=== PATIENT | female | born 1995 | race Caucasian/White ===

== ENCOUNTER 2023-10-21 10:34 | Outpatient (RCR) | payer BC, SELFPAY ==
[2023-10-22] MEDS: RHO(D) IMMUNE GLOBULIN 300 MCG/2 ML SYRINGE IM (10:27)
== END 2024-01-19 23:59 | disposition home or self-care (01) ==
LOC: ANHLAB 10:34
PROVIDERS: PCP Internal Medicine; Visit Provider Obstetrics & Gynecology
DX: Z29.13 Encounter for prophylactic Rho(D) immune globulin (principal); O36.0190 Maternal care for anti-D [Rh] antibodies, unspecified trimester, not applicable or unspecified; Z3A.00 Weeks of gestation of pregnancy not specified
CPT/HCPCS: 36415; 85461; 86850; 86900; 86901; 90384; 96372; J2790

== ENCOUNTER 2024-01-03 10:14 | Outpatient (CLI) | payer BC, SELFPAY ==
[2024-01-03 11:04] LABS: Hematocrit 37.3 % (37.0-47.0); Mean Corpuscular HGB Conc 32.2 g/dl (32-36); Mean Corpuscular Hemoglobin 28.4 pg (26-34); Mean Corpuscular Volume 88.2 fl (80-100); Mean Platelet Volume 11.8 fl (7.4-10.4); Platelet Count Result 150 k/mm3 (150-375); Red Blood Count 4.23 M/mm3 (4.2-5.4); Red Cell Distribution Width 13.5 % (11.5-14.5); White Blood Count 11.6 K/mm3 (4.5-10.0)
[2024-01-03 12:19] LABS: Rapid Plasma Reagin Non-Reactive (NonReactive)
== END 2024-01-03 10:15 | disposition home or self-care (01) ==
LOC: ANHLAB 10:17
PROVIDERS: PCP Internal Medicine; Visit Provider Obstetrics & Gynecology
DX: Z01.812 Encounter for preprocedural laboratory examination (principal); O32.1XX0 Maternal care for breech presentation, not applicable or unspecified
CPT/HCPCS: 36415; 85027; 86592; 86850; 86880; 86900; 86901

== ENCOUNTER 2024-01-05 09:56 | Inpatient (IN) | payer BC, SELFPAY ==
--- NOTE | 2024-01-01 08:31 | P.HP_ITS ---
H&P: HPI History of Present Illness Date/Time: 01/01/24 08:31 Chief Complaint: term with breech presentation Narrative: 28-year-old female 1 para 0 at39+ weeks gestation with breech presentation and low fluid. Her has been relatively uncomplicated. She is breech and she did not desire attempt at external version. Risks and benefits of this procedure were reviewed in full. [facility] Family History Family History Other Patient denies significant medical history Social History Social History Substance use: never Spiritual care concerns: No Meds Home Medications and Allergies Home Medications Medication Instructions Recorded Confirmed Type prenat.vits,acosta,kgj-[id number] 1 tablet 12/18/23 History Allergies Allergy/AdvReac Type Severity Reaction Status Date / Time amoxicillin Allergy Intermediate hives Verified 12/18/23 13:34 Exam Const: General: cooperative, healthy appearing, comfortable and average body habitus Nutritional Appearance: average body habitus Orientation/consciousness: oriented to person, oriented to place and oriented to time HENMT: Head: normal to inspection Resp: Effort & Inspection: normal respiratory effort Cardio: Rate: regular rate Rhythm: regular rhythm Heart sounds: S1 normal heart sound present and S2 normal heart sound present GI: Inspection: normal to inspection ( Gravid soft uterus) : External Female Exam: normal external appearance Speculum Exam - Vagin a: normal appearance of the vagina Speculum Exam - Cervix: normal appearance of the cervix Assessment and Plan Assessment and plan (1) Term : Code(s): Z34.90 - Encounter for supervision of normal , unspecified, unspecified trimester Status: Acute (2) Breech presentation: Code(s): O32.1XX0 - Maternal care for breech presentation, not applicable or unspecified Status: Acute Assessment and Plan: proceed with low-transverse section
[2024-01-05] VITALS (55 sets, daily range): BP systolic 103–129; BP diastolic 52–108; PULSE 47–113; RESP 10–20; TEMP 36.6–37.1; O2SAT 97–100; BMI 24.0
--- NOTE | 2024-01-05 05:33 | WPDHPUPDATE1 ---
History and Physical Update Update Date/Time: 01/05/24 05:33 History and Physical has been reviewed, including an updated exam of the patient. There are NO changes in the patient's condition. Risks, benefits, and alternatives have been discussed and questions answered. Patient agrees to proceed with procedure.
--- NOTE | 2024-01-05 09:56 | LDADM ---
This patient, Nazia Lu, was admitted to Labor/Delivery/Recovery 120 on 01/05/24 at 09:56. Plans for labor, pain management and were discussed with patient. Patient/family oriented to hospital policies and general routines including ID bracelet, bed and alarms, visiting hours, pain management, procedures, bathroom and other care routines, personal items, smoking policy, room service/diet and guest tray routines, security routines, and visiting hours. Patient/Family are encouraged to report perceived risks to care and to ask questions if they do not understand what they are told or what they should do. See OBIX for further documentation.
[2024-01-05] MEDS: ACETAMINOPHEN 500 MG TABLET 1000 MG PO (10:17)
[2024-01-05] MEDS: LACTATED RINGERS 1,000 ML 125 ML IV CONT ×2 (10:34→11:31)
--- NOTE | 2024-01-05 10:41 | P.PNAN_ITS ---
Anes - Initial Pre Proc Eval Procedure: Operation Date: 01/05/24 12:00 Proposed Procedures p Section - Mark Payne MD Date/Time: 01/05/24 10:41 Surgeon: Mark Payne MD Pre Op Diagnosis: c/s Patient Data Age: 28 Gender: F Height: 1.78 m Weight: 76 kg Allergies Allergy/AdvReac Type Severity Reaction Status Date / Time amoxicillin Allergy Intermediate hives Verified 12/18/23 13:34 Home Medications Medication Instructions Recorded Confirmed Type prenat.vits,acosta,czt-wkxx-baect 1 tablet PO DAILY 12/18/23 01/05/24 History Patient hx anesthesia problems: none Family hx anesthesia problems: none Results Review: All pre-operative results and documents have been reviewed as part of the pre- operative evaluation. [facility] Past Medical History Medical History (Updated 01/05/24 @ 10:41 by Mark Calhoun MD) Breech presentation Surgical History Surgical History (Updated 01/05/24 @ 10:41 by Mark Calhoun MD) H/O rhinoplasty Family History Family History Other Patient denies significant medical history Social History Social History Smoking status: Never smoker Substance use: never Do You Feel Safe in your Home?: Yes Lack of Transportation: No Lack of Food: Never True Current Housing: I Have Housing Concerned About Future Housing: No Difficulty Paying Gas/Electric Bills: No Difficulty Paying for Meds: No Currently Unemployed: No Education: Associate Degree Difficulty w/ Childcare or Family Care: No Spiritual care concerns: No Anes - Eval Final PreProcedure Day of Procedure 01/05/24 10:41 Patient weight: normal Heart: regular rate and rhythm Lungs: clear to auscultation Airway: Mallampati scale class 1 Neurological: alert and oriented Last oral intake: >/= 8 hours ASA classification: II Emergent: no Anesthetic plan: proceed Anesthesia type and monitoring: regional spinal Results Review: All pre-operative results and documents have been reviewed as part of the pre- operative evaluation. Informed Consent: The patient's anesthetic plan and its attendant risks and benefits were discussed with the patient/family/POA. Questions were solicited and answers provided to the satisfaction of the patient/family/POA.
[2024-01-05] MEDS: ONDANSETRON INJ 4 MG/2 ML VIAL IV PUSH (11:31)
[2024-01-05] MEDS: FAMOTIDINE 20 MG/2 ML VIAL IV PUSH (11:31)
[2024-01-05] MEDS: ceFAZolin 2 GM/D5W 50 ML 2 GM/50 ML BAG IVPB (11:38)
[2024-01-05 11:39] LABS: HIV 1/2 Ab P24 Ag Result Negative (Negative)
--- NOTE | 2024-01-05 12:34 | W.PM.OBCSD ---
OB - Delivery Note Procedure Delivery date: 01/05/24 Pre-op diagnosis: Breech Presentation Post-op Diagnosis: Same Induction method: None Delivery monitor: External FHT Prior to decision for section, ACOG/SM labor guidelines were considered and discussed with the patient and staff. Decision made to proceed with the section.: Yes Procedure Performed: Primary Surgeon: Mark Payne MD Anesthesia type: Spinal Description of Procedure/Findings: The patient was admitted for primary low-transverse section secondary to breech presentation ultrasound proved this preoperatively. After obtained informed consent she was taken back prepped and draped and placed in the supine position. Under excellent spinal anesthetic the abdomen was entered in Pfannenstiel fashion progressive layers of fascia. Fascia incised midline carried in upward and outward fashion bilaterally. Underlying muscles sharply dissected. Parietal peritoneum entered by Krystal clamps and superiorly and inferiorly the dome of the bladder. Bladder blade placed. Bladder flap formed. Bladder blade returned. A low transverse incision made in the breech delivered to the maternal left with the arm swept medially and the head delivered in the flexed position. Cord clamped x2 and cut passed off the table with an excellent cry. Apgars of 8 and 9 were given. Placenta delivered intact manually. Uterus delivered on the abdomen wrapped in moist towel. After assuring no membranes or debris remained in the uterus, the uterus was closed with continuous running locking 0 Vicryl from lateral edge to lateral edge. This followed by 2nd imbricating running locking 0 Vicryl from lateral edge to lateral edge. Hemostasis was assured. Ovaries and tubes appeared within normal limits in the uterus returned the abdomen. The hysterotomy incision inspected 1 last time noted be hemostatic. The laps removed and accounted for. The fascia closed with continuous running 0 Vicryl from lateral edge to lateral edge. Irrigation subcutaneous layer and the skin closed with 4 Monocryl glue. Blood loss was 500cc. All sponge, needle, instrument counts were correct. There were no immediate complications Specimen: No Estimated Blood Loss: 500 Drains: No Packing: No Pathology: None sent Complications: No immediate complications Condition: Stable Disposition: PACU [place] Baby Date of : 01/05/24 Time of : 12:15 Gestational Age by Date: 39 gender: Female Weight (pounds): 6 Weight (ounces): 8 presentation: luis breech position: Left Sacrum Posterior Placenta delivery description: Manual Removal Cord Vessel Description: 3 Vessels score one minute: 8 score five minutes: 9
--- NOTE | 2024-01-05 12:37 | P.DS_ITS ---
DS: Admitting Diagnosis Discharge Date 01/07/2024 Admitting Diagnosis term /breech presentation DS: Discharge Diagnosis Discharge Diagnosis (1) Term : Code(s): Z34.90 - Encounter for supervision of normal , unspecified, unspecified trimester Status: Acute DS: Summary Hospital Course Reason for hospitalization: patient was admitted for primary low-transverse section secondary to breech presentation Hospital Course: patient underwent primary low-transverse section for breech presentation. Her hospital course unremarkable. She remained afebrile. She was up, voiding without difficulty, eating regular diet, ambulating and generally without complaints. Time Spent with Patient Time attestation: Total time spent providing and/or coordinating discharge services: Exam Const: General: cooperative, healthy appearing and comfortable Nutritional Appearance: average body habitus Orientation/consciousness: oriented to pers on, oriented to place and oriented to time Resp: Effort & Inspection: normal respiratory effort Cardio: Rate: regular rate Rhythm: regular rhythm Heart sounds: S1 normal heart sound present and S2 normal heart sound present GI: Inspection: normal to inspection and incision ( Wound is clean dry and intact) DS: Data Data Completed and Pending Labs on day of discharge: Labs from last 24 hours 01/05/24 10:11 RPR Pending HIV 1&2 Ab/P24 Ag 4thGn Negative Discharge Plan Discharge Attending physician on discharge: Mark Batista Discharging Clinician: Mark Batista Patient Disposition: Home, Self-Care Activity: may shower, no straining, may drive after 2 weeks and pelvic rest Diet: heart healthy Patient Instructions: Antibiotic Form Stand Alone Forms: General Discharge Information Follow-up/Referrals: Mark Batista MD [Physician] - Discharge Medications: New hydrocodone-acetaminophen 5-325 mg tablet 1 tablet PO Q4H PRN (Reason: pain) Qty: 20 0RF No Action #2 Tablet 1 tablet PO DAILY Date of admission: 01/05/24 09:56 Primary Care Provider: Sadaf,Harinder Ramirez Admitting Provider: Mark Batista Attending physician on admission: Mark Batista Condition: Stable
[2024-01-05] MEDS: OXYTOCIN 30 UNITS/NS 500 ML 30 UNITS/500 ML BAG 125 UNITS IV CONT (14:04)
[2024-01-05 14:07] LABS: Rapid Plasma Reagin Non-Reactive (NonReactive)
--- NOTE | 2024-01-05 15:06 | PC.NURSE ---
Patient transferred to post room #281 via stretcher. Support person present. Oriented to unit, room, information board, rooming in, admission packet and security measures. Patient verbalizes understanding.
[2024-01-05] MEDS: KETOROLAC 15 MG/ML VIAL (*BKC) IV PUSH ×2 (16:32→22:37)
[2024-01-05] MEDS: ACETAMINOPHEN 325 MG TABLET 650 MG PO ×2 (16:33→22:37)
[2024-01-05] MEDS: SIMETHICONE 80 MG TAB.CHEW PO (16:34)
[2024-01-05] MEDS: DEXTROSE 5%/0.45% SOD CHL 1,000 ML 125 ML IV CONT (18:36)
[2024-01-05] MEDS: LIDOCAINE 5% PATCH 1 PATCH TRANSDERM (18:37)
[2024-01-06 04:15] VITALS: BP 110/62; PULSE 59; RESP 16; TEMP 36.3; O2SAT 100
[2024-01-06] MEDS: KETOROLAC 15 MG/ML VIAL (*BKC) IV PUSH ×2 (04:26→10:15)
[2024-01-06] MEDS: ACETAMINOPHEN 325 MG TABLET 650 MG PO ×4 (04:26→23:12)
[2024-01-06 04:44] LABS: Basophils Percent Auto 0.2 % (0.2-1.2); Eosinophils Absolute Auto 0.1 K/mm3 (0-0.3); Eosinophils Percent Auto 0.5 % (0-4.4); Hematocrit 32.8 % (37.0-47.0); Hemoglobin 11.1 g/dL (12.0-15.0); Immature Granulocyte Absolute 0.04 K/mm3 (0.00-0.031); Immature Granulocyte Percent A 0.4 % (0-0.5); Immature Platelet Fraction Pct 6.3 % (0.9-11.2); Lymphocytes Absolute Auto 1.26 K/mm3 (0.9-3.2); Lymphocytes Percent Auto 12.5 % (18.3-44.2); Mean Corpuscular HGB Conc 33.8 g/dl (32-36); Mean Corpuscular Hemoglobin 29.4 pg (26-34); Mean Platelet Volume 11.4 fl (7.4-10.4); Monocytes Absolute Auto 0.5 K/mm3 (0.1-0.6); Monocytes Percent Auto 5.4 % (2.6-8.5); Neutrophils Absolute Auto 8.1 K/mm3 (1.3-6.7); Platelet Count Result 139 k/mm3 (150-375); Red Blood Count 3.77 M/mm3 (4.2-5.4); Red Cell Distribution Width 13.4 % (11.5-14.5)
--- NOTE | 2024-01-06 06:30 | PM.OBPNVD ---
OB - PN: Subj Subjective Date/time seen: 01/06/24 06:30 Patient comments: no complaints and pain well controlled baby status: doing well and nursing well OB - PN: Obj Data Labs 01/06/24 04:25 Labs: Laboratory Results - last 24 hr 01/05/24 01/06/24 10:11 04:25 WBC 10.0 RBC 3.77 L Hgb 11.1 L Hct 32.8 L MCV 87.0 MCH 29.4 MCHC 33.8 RDW 13.4 Plt Count 139 L MPV 11.4 H Immature Gran % (Auto) 0.4 Neut % (Auto) 81.0 H Lymph % (Auto) 12.5 L [place] % (Auto) 5.4 Eos % (Auto) 0.5 Baso % (Auto) 0.2 Lymph # (Auto) 1.26 [place] # (Auto) 0.5 Eos # (Auto) 0.1 Baso # (Auto) 0.0 Abs Immat Gran (auto) 0.04 H Absolute Neuts (auto) 8.1 H Absolute Nucleated RBC 0.000 Nucleated RBC % 0.0 % Immature Plt Fraction 6.3 RPR Non-reactive HIV 1&2 Ab/P24 Ag 4thGn Negative Blood Type A Negative OB - PN A/P Plan day: 1 Plan: routine care Time Spent With Patient Time: Total time spent is greater than 50% in coordination of care (as documented) at patient's floor/unit and/or counseling patient: Time with patient: less than 15 minutes Exam Const: General: cooperative, healthy appearing and comfortable Nutritional Appearance: average body habitus Orientation/consciousness: oriented to person, oriented to place and oriented to time Resp: Effort & Inspection: normal respiratory effort Cardio: Rate: regular rate Rhythm: regular rhythm Heart sounds: S1 normal heart sound present and S2 normal heart sound present GI: Inspection: normal to inspection and incision (cdi)
[2024-01-06 07:20] VITALS: BP 106/72; PULSE 64; RESP 16; TEMP 36.6; O2SAT 100
[2024-01-06] MEDS: SIMETHICONE 80 MG TAB.CHEW PO ×2 (08:56→17:05)
[2024-01-06] MEDS: DOCUSATE SODIUM 100 MG CAPSULE PO ×2 (08:56→17:05)
[2024-01-06] MEDS: MULTIVIT/MIN/PREN/FOL AC/IRON TABLET 1 TAB PO (08:58)
[2024-01-06 12:23] VITALS: BP 110/67; PULSE 66; RESP 16; TEMP 37; O2SAT 98
[2024-01-06] MEDS: RHO(D) IMMUNE GLOBULIN 300 MCG/2 ML SYRINGE IM (12:35)
[2024-01-06] MEDS: IBUPROFEN 600 MG TABLET PO ×2 (17:04→23:12)
[2024-01-06] MEDS: LIDOCAINE 5% PATCH 1 PATCH TRANSDERM (18:51)
[2024-01-06 19:46] VITALS: BP 120/76; PULSE 58; RESP 18; TEMP 37.1; O2SAT 99
[2024-01-07] MEDS: ACETAMINOPHEN 325 MG TABLET 650 MG PO ×2 (04:54→10:53)
[2024-01-07] MEDS: IBUPROFEN 600 MG TABLET PO ×2 (04:54→10:53)
--- NOTE | 2024-01-07 06:31 | PM.OBPNVD ---
OB - PN: Subj Subjective Date/time seen: 01/07/24 06:31 Patient comments: no complaints and pain well controlled baby status: doing well OB - PN: Obj Data Labs 01/06/24 04:25 Labs: Laboratory Results - last 24 hr 01/06/24 04:25 Blood Type A Negative Antibody Screen TNP Screen Negative Baby's Blood Type A pos Baby's EDUARDO Positive Doses of RhIg Required 1 OB - PN A/P Plan day: 2 Plan: routine care, discharge home and follow up 6 weeks (4 weeks) Time Spent With Patient Time: Total time spent is greater than 50% in coordination of care (as documented) at patient's floor/unit and/or counseling patient: Time with patient: less than 15 minutes Exam Const: General: cooperative, healthy appearing and comfortable Nutritional Appearance: average body habitus Orientation/consciousness: oriented to person, oriented to place and oriented to time Resp: Effort & Inspection: normal respiratory effort Cardio: Rate: regular rate Rhythm: regular rhythm Heart sounds: S1 normal heart sound present and S2 normal heart sound present GI: Inspection: normal to inspection and incision (cdi)
[2024-01-07 07:30] VITALS: BP 122/76; PULSE 60; RESP 16; TEMP 36.9; O2SAT 100
[2024-01-07] MEDS: MULTIVIT/MIN/PREN/FOL AC/IRON TABLET 1 TAB PO (08:56)
[2024-01-07] MEDS: SIMETHICONE 80 MG TAB.CHEW PO ×2 (08:56→11:55)
[2024-01-07] MEDS: DOCUSATE SODIUM 100 MG CAPSULE PO (08:56)
--- NOTE | 2024-01-07 08:57 | PC.NURSE ---
Patient viewed the discharge video Mother & Baby Care, The First Two Weeks . Patient was given the opportunity and encouraged to ask questions. Patient verbalized understanding of information shared and has been given the mother/baby guide for home reference.
--- NOTE | 2024-01-07 10:02 | WPDANLDPN2 ---
Anes-Prog Note L&D Date/Time: 01/07/24 10:02 Comfortable throughout: section Neuraxial method: spinal Epidural/Spinal procedure site: clean & non-tender Neuro status: Neuro function grossly intact. Cardiovascular status: normal Respiratory status: normal Airway patency: baseline Mental status: baseline Post-Op hydration status: normal Vital Signs: Last Vital Signs Temp 36.9 C 01/07/24 07:30 Pulse 60 01/07/24 07:30 Resp 16 01/07/24 07:30 BP 122/76 01/07/24 07:30 Pulse Ox 100 01/07/24 07:30 O2 Del Method Room Air 01/07/24 07:25 Pain score (VAS): 1 Patient feedback: Patient satisfied with anesthetic care.
--- NOTE | 2024-01-07 10:03 | WPDANLDNPN2 ---
Anes-Prog Note L&D-Neuraxial Date/Time: 01/07/24 10:03 Neuraxial medications: intrathecal PF morphine Opiod-related complaints: none Patient feedback: Patient satisfied with post-operative pain management.
[2024-01-08 10:24] VITALS: BP 119/68; PULSE 79; RESP 16; TEMP 36.8; O2SAT 100
== END 2024-01-07 15:50 | disposition home or self-care (01) | DRG 788 ==
LOC: ANHLDR 10:01 → ANHOB2 15:23
PROVIDERS: Admitting Provider Obstetrics & Gynecology; PCP Internal Medicine; Visit Provider Obstetrics & Gynecology
PROC: 10D00Z1 Extraction of Products of Conception, Low, Open Approach (ICD-10-PCS; CPT 59514; principal; 2024-01-05 12:00)
DX: O32.1XX0 Maternal care for breech presentation, not applicable or unspecified (principal); Z37.0 Single live birth; Z3A.39 39 weeks gestation of pregnancy
CPT/HCPCS: 36415; 85025; 85027; 85055; 85461; 86592; 86703; 86850; 86880; 86900; 86901; 90384; A9270; G0432; J0690; J1885; J2274; J2371; J2405; J2590; J2790; J7120